=== PATIENT | male | born 1995 | race Caucasian/White ===

== ENCOUNTER 2017-04-06 12:09 | Emergency (ER) | payer BC ==
[2017-04-06] MEDS ORDERED: cefTRIAXone 1,000 MG in Lidocaine 1% 4 ML IM ONE (13:18)
[2017-04-06] MEDS ORDERED: Lidocaine 1% 20 ML MDV INJECT ONE (13:19)
--- NOTE | 2017-04-06 13:19 | EDM.PDOC ---
ED HPI GENERAL MEDICAL PROBLEM - General Chief Complaint: Skin Complaint Stated Complaint: RT SIDE OF FACE IS SWOLLEN Time Seen by Provider: 04/06/17 13:19 Source of Information: Reports: Patient - History of Present Illness INITIAL COMMENTS - FREE TEXT/NARRATIVE: HISTORY AND PHYSICAL: History of present illness: [Patient presents with left facial swelling Has a large fluctuant area on his left lower jawline consistent with a skin abscess likely ingrown hair from his lilly was the nidus for the infection, I&D will be required, lesion approximately 1 inch diameter and fluctuant red warm tender No fever nausea vomiting chills sweats ] Review of systems: As per history of present illness and below otherwise all systems reviewed and negative. Past medical history: As per history of present illness and as reviewed below otherwise noncontributory. Surgical history: As per history of present illness and as reviewed below otherwise noncontributory. Social history: No reported history of drug or alcohol abuse. Family history: As per history of present illness and as reviewed below otherwise noncontributory. Physical exam: HEENT: Atraumatic, normocephalic, pupils reactive, negative for conjunctival pallor or scleral icterus, mucous membranes moist, throat clear, neck supple, nontender, trachea midline. Lungs: Clear to auscultation, breath sounds equal bilaterally, chest nontender. Heart: S1S2, regular, negative for clicks, rubs, or JVD. Abdomen: Soft, nondistended, nontender. Negative for masses or hepatosplenomegaly. Negative for costovertebral tenderness. Pelvis: Stable nontender. Genitourinary: Deferred. Rectal: Deferred. Extremities: Atraumatic, negative for cords or calf pain. Neurovascular unremarkable. Neuro: Awake, alert, oriented. Cranial nerves II through XII unremarkable. Cerebellum unremarkable. Motor and sensory unremarkable throughout. Exam nonfocal. Skin as per history of present illness otherwise unremarkable Diagnostics: Wound culture ] Therapeutics: [I&D, iodoform replaced after flushing wound with sterile water Lidocaine] [1 g Rocephin Morphine 4mg IM Bactrim double strength by mouth twice a day #20 no refill Return Monday for re-packing and wound check/48 hours [place] [address] Impression: [Skin abscess]-left cheek Definitive disposition and diagnosis as appropriate pending reevaluation and review of above. Face Pain Score (Numeric/FACES): 8 - Related Data Allergies Allergy/AdvReac Type Severity Reaction Status Date / Time No Known Allergies Allergy Verified 04/06/17 12:39 Home Meds: Home Meds . [No Known Home Meds] 04/06/17 [History] Past Medical History HEENT History: Reports: None Cardiovascular History: Reports: None Respiratory History: Reports: None Gastrointestinal History: Reports: None Genitourinary History: Reports: None Musculoskeletal History: Reports: Other (See Below) Other Musculoskeletal History: back injury about 1 year ago Neurological History: Reports: None Psychiatric History: Reports: None Endocrine/Metabolic History: Reports: None Hematologic History: Reports: None Immunologic History: Reports: None Oncologic (Cancer) History: Reports: None Dermatologic History: Reports: None - Infectious Disease History Infectious Disease History: Reports: None - Past Surgical History Head Surgeries/Procedures: Reports: None Male Surgical History: Reports: None Social & Family History - Caffeine Use Caffeine Use: Reports: Coffee - Alcohol Use Days Per Week of Alcohol Use: 1 Number of Drinks Per Day: 2 Total Drinks Per Week: 2 - Recreational Drug Use Recreational Drug Use: No ED ROS GENERAL - Review of Systems Review Of Systems: ROS reveals no pertinent complaints other than HPI. ED EXAM, SKIN/RASH Exam: See Below Course - Vital Signs Last Recorded V/S: Last Vital Signs Temp 97.1 F 04/06/17 12:36 Pulse 92 04/06/17 12:36 Resp 20 04/06/17 12:36 BP 127/60 04/06/17 12:36 Pulse Ox 97 04/06/17 12:36 - Orders/Labs/Meds Meds: Medications Discontinued Medications Generic Name Dose Route Start Last Admin Trade Name Shamir PRN Reason Stop Dose Admin Ceftriaxone Sodium 1,000 mg/ 4 mls @ 4 mls/sec 04/06/17 13:18 Lidocaine HCl IM 04/06/17 13:19 ONETIME ONE Lidocaine HCl 20 ml 04/06/17 13:19 Xylocaine 1% INJECT 04/06/17 13:20 ONETIME ONE Morphine Sulfate 4 mg 04/06/17 14:23 Morphine IM 04/06/17 14:24 ONETIME ONE Departure - Departure Time of Disposition: 14:33 Disposition: Home, Self-Care 01 Condition: Good Clinical Impression: Abscess, Cellulitis - Discharge Information Referrals: PCP,None [Primary Care Provider] - Forms: ED Department Discharge Additional Instructions: Medication as prescribed Return if symptoms persist or worsen Keep wound clean and dry As discussed the iodoform thread needs to remain in place to promote drainage if this should come out herpes removed accidentally return to have it replaced Follow-up in 48 hours/Monday morning for wound recheck and repacking as discussed Return in the interim if fever nausea vomiting chills sweats or worsening of symptoms despite antibiotics Pain medication has been prescribed as well The following information is given to patients seen in the emergency department who are being discharged to home. This information is to outline your options for follow-up care. We provide all patients seen in our emergency department with a follow-up referral. The need for follow-up, as well as the timing and circumstances, are variable depending upon the specifics of your emergency department visit. If you don't have a primary care physician on staff, we will provide you with a referral. We always advise you to contact your personal physician following an emergency department visit to inform them of the circumstance of the visit and for follow-up with them and/or the need for any referrals to a consulting specialist. The emergency department will also refer you to a specialist when appropriate. This referral assures that you have the opportunity for follow-up care with a specialist. All of these measure are taken in an effort to provide you with optimal care, which includes your follow-up. Under all circumstances we always encourage you to contact your private physician who remains a resource for coordinating your care. When calling for follow-up care, please make the office aware that this follow-up is from your recent emergency room visit. If for any reason you are refused follow-up, please contact the [facility] emergency department at and asked to speak to the emergency department charge nurse.
[2017-04-06] MEDS ORDERED: Morphine 4 MG/ML Syringe IM ONE (14:23)
== END 2017-04-06 15:30 | disposition home or self-care (01) ==
LOC: EEVIPCON 12:09 → MW.ED 12:09
DX: L02.01 Cutaneous abscess of face (principal); L03.211 Cellulitis of face
CPT/HCPCS: 10061; 87070; 96372; 99283; J0696; J2270; 87077; 87186; J2001

== ENCOUNTER 2017-04-08 09:56 | Emergency (ER) | payer BC ==
--- NOTE | 2017-04-08 10:21 | EDM.PDOC ---
ED HPI GENERAL MEDICAL PROBLEM - General Chief Complaint: Wound Recheck Stated Complaint: FOLLOW W/ IN ER Time Seen by Provider: 04/08/17 10:11 Source of Information: Reports: Patient History Limitations: Reports: No Limitations - History of Present Illness INITIAL COMMENTS - FREE TEXT/NARRATIVE: HISTORY AND PHYSICAL: [21-year-old male presenting with wound reevaluation.] History of Present Illness: [Patient was seen initially on 04/06/[address] Ceballos shoulder material was noted/I&D performed on the left lower cheek. Iodoform gauze have been placed into this wound. Patient relates he cut the edge of this off yesterday. ] Review of Systems: As per history of present illness and below otherwise all systems reviewed and negative. Past medical history: As per history of present illness and as reviewed below otherwise noncontributory. Surgical history: As per history of present illness and as reviewed below otherwise noncontributory. Social history: No reported history of drug or alcohol abuse. Family history: As per history of present illness and as reviewed below otherwise noncontributory. Physical exam: Alert and oriented male who is answering questions appropriately. has good eye contact. he is not short of breath with full sentences being spoken. No iodoform gauze is visualized area has closed over there is some small pustular component on his face. HEENT: Atraumatic, normocehpalic, pupils reactive, negative for conjunctival pallor or scleral icterus, mucous membranes moist, neck supple, nontender, trachea midline. Lungs: Clear to auscultation, breath sounds equal bilaterally, chest non tender. Heart: S1S2, regular, negative for clicks, rubs, or JVD. Genitourinary: Deferred. Rectal: Deferred Extremities: Atraumatic, negative for cords or calf pain. Neurovascular unremarkable. Neuro: Awake, alert, oriented. Cranial nerves II through XII unremarkable. Cerebellum unremarkable. Motor and sensory unremarkable throughout. Exam nonfocal. Discussed how he was feeling patient does not feel that he denies having any chills at this time. Skin is warm and dry Sterile to chew removal kit was utilized and area was again opened. Pustular material was removed. 2 inches iodoform gauze was placed back into the wound. Patient is advised to return tomorrow for reevaluation. Diagnostics: [] Therapeutics: [Wound was reopened iodoform gauze placed] Impression: [Dressing change/wound evaluation] Plan: [Continue with the antibiotics that you have been given Return tomorrow for reevaluation of your wound] Definitive disposition and diagnosis as appropriate pending reevaluation and review of above. Onset: Gradual Duration: Day(s): Location: Reports: Face - Related Data Allergies Allergy/AdvReac Type Severity Reaction Status Date / Time No Known Allergies Allergy Verified 04/08/17 10:14 Home Meds: Home Meds Sulfamethoxazole/Trimethoprim [Bactrim Ds Tablet] 04/08/17 [History] Past Medical History HEENT History: Reports: None Cardiovascular History: Reports: None Respiratory History: Reports: None Gastrointestinal History: Reports: None Genitourinary History: Reports: None Musculoskeletal History: Reports: Other (See Below) Other Musculoskeletal History: back injury about 1 year ago Neurological History: Reports: None Psychiatric History: Reports: None Endocrine/Metabolic History: Reports: None Hematologic History: Reports: None Immunologic History: Reports: None Oncologic (Cancer) History: Reports: None Dermatologic History: Reports: None - Infectious Disease History Infectious Disease History: Reports: None - Past Surgical History Head Surgeries/Procedures: Reports: None Male Surgical History: Reports: None Social & Family History - Caffeine Use Caffeine Use: Reports: Coffee - Alcohol Use Days Per Week of Alcohol Use: 1 Number of Drinks Per Day: 2 Total Drinks Per Week: 2 - Recreational Drug Use Recreational Drug Use: No ED ROS GENERAL - Review of Systems Review Of Systems: ROS reveals no pertinent complaints other than HPI. ED EXAM, SKIN/RASH Exam: See Below (See dictation) ED WOUND PROCEDURES - I&D Skin Prep: Providone-Iodine (Betadine) Drainage: Purulent, Bloody, Moderate Amount Probed to Break Up Loculations: No Packed With: 1/4 in. Iodoform Sterile Dressing: None Complications: No Departure - Departure Time of Disposition: 10:26 Disposition: Home, Self-Care 01 Condition: Good Clinical Impression: Abscess - Discharge Information Instructions: Skin Abscess Referrals: PCP,None [Primary Care Provider] - Additional Instructions: The following information is given to patients seen in the emergency department who are being discharged to home. This information is to outline your options for follow-up care. We provide all patients seen in our emergency department with a follow-up referral. The need for follow-up, as well as the timing and circumstances, are variable depending upon the specifics of your emergency department visit. If you don't have a primary care physician on staff, we will provide you with a referral. We always advise you to contact your personal physician following an emergency department visit to inform them of the circumstance of the visit and for follow-up with them and/or the need for any referrals to a consulting specialist. The emergency department will also refer you to a specialist when appropriate. This referral assures that you have the opportunity for followup care with a specialist. All of these measure are taken in an effort to provide you with optimal care, which includes your followup. Under all circumstances we always encourage you to contact your private physician who remains a resource for coordinating your care. When calling for followup care, please make the office aware that this follow-up is from your recent emergency room visit. If for any reason you are refused follow-up, please contact the [facility] emergency department at and asked to speak to the emergency department charge nurse. Do not remove the iodoform gauze that has been placed to the wound Return tomorrow for reevaluation of this wound Continue with the current medications that you are taking Bactrim DS antibiotic
== END 2017-04-08 10:38 | disposition home or self-care (01) ==
LOC: MW.ED 09:56
DX: L02.01 Cutaneous abscess of face (principal)
CPT/HCPCS: 99282

== ENCOUNTER 2017-04-09 10:46 | Emergency (ER) | payer BC | END 2017-04-09 11:02 | disposition left against medical advice (07) | LOC: MW.ED 10:46 | DX: Z53.21 Procedure and treatment not carried out due to patient leaving prior to being seen by health care provider (principal) ==